=== PATIENT | female | born 1980 | race Caucasian/White ===

== ENCOUNTER 2019-04-19 13:15 | Emergency (ER) | payer MEDICAID ==
[~2019-04-19] VITALS: Ht 160 cm; Wt 64.4 kg
[2019-04-19 13:27] VITALS: BP 123/69
--- NOTE | 2019-04-19 13:31 | NUR ---
PT TO ER LOBBY WITH STEADY GAIT. VS [facility], PT ALERT AND AWAKE
--- NOTE | 2019-04-19 13:58 | NUR ---
PT AMBULATED TO ER BED 5
--- NOTE | 2019-04-19 14:12 | NUR ---
38 YEAR OLD FEMALE COMPLAINS OF ABDOMINAL PAIN (01/16) THAT RADIATES TO THE LOWER BACK (PAIN /) SINCE YESTERDAY. DENIES N/V/D. DENIES DYSURIA. BOWEL SOUNDS ACTIVE IN ALL 4 QUADRANTS.RUQ PAIN UPON PALPATION. PATIENT HAD BOWEL MOVEMENT LAST NIGHT. PATIENT ALERT AND ORIENTED. BED IN LOWEST POSITION, LOCKED, SIDE RAIL UPX1.
[2019-04-19] MEDS ORDERED: MORPHINE SULFATE 4 MG/ML SYR IVP ONE (14:30)
[2019-04-19] MEDS ORDERED: NACL 0.9% 1,000 ML IV ONE (14:30)
[2019-04-19] MEDS ORDERED: ONDANSETRON 4 MG/2 ML VIAL IVP ONE (14:30)
--- NOTE | 2019-04-19 15:18 | NUR ---
Ultrasound at bedside.
[2019-04-19 15:40] LABS: BASOPHILS % (AUTO) 0.4 % (0.0-2.0); EOSINOPHILS % (AUTO) 0.4 % (0.0-4.0); HEMATOCRIT 43.3 % (36-48); HEMOGLOBIN 14.6 g/dL (12.0-16.0); LYMPHOCYTES # (AUTO) 1.4 K/uL (2.5-16.5); LYMPHOCYTES % (AUTO) 17.1 % (20.5-51.1); MEAN CORPUSCULAR HEMOGLOBIN 32 pg (27-31); MEAN CORPUSCULAR HGB CONC 34 g/dL (33-37); MEAN CORPUSCULAR VOLUME 95.9 fL (80-94); MONOCYTES # (AUTO) 0.4 K/uL (0.8-1.0); MONOCYTES % (AUTO) 4.3 % (1.7-9.3); NEUTROPHILS # (AUTO) 6.5 K/uL (1.8-7.7); NEUTROPHILS % (AUTO) 77.8 % (42.2-75.2); PLATELET COUNT (AUTO) 238 K/uL (140-450); RED BLOOD CELL COUNT(AUTO) 4.52 MIL/uL (4.20-5.40); RED CELL DISTRIBUTION WIDTH 12.7 % (11.6-13.7); WHITE BLOOD COUNT (AUTO) 8.3 K/uL (4.8-10.8)
[2019-04-19 15:45] LABS: APPEARANCE,URINE CLEAR (CLEAR); BILIRUBIN,URINE NEGATIVE (NEGATIVE); BLOOD, URINE 1+ (NEGATIVE); COLOR,URINE YELLOW (YELLOW); LEUKOCYTE ESTERASE ,URINE NEGATIVE (NEGATIVE); NITRITE, URINE NEGATIVE (NEGATIVE); UGLUCOSE NEGATIVE (NEGATIVE)
[2019-04-19 15:51] LABS: CARBON DIOXIDE 28.7 mmol/L (21-32); CREATININE 0.7 mg/dL (0.6-1.3); POTASSIUM 3.7 mmol/L (3.5-5.1)
[2019-04-19 15:57] LABS: ALBUMIN 4.2 g/dL (3.4-5.0); TOTAL BILIRUBIN 0.4 mg/dL (0.0-1.0)
[2019-04-19 15:58] LABS: RBC,URINE 0-5 /HPF (0-5); TRICHOMONAS,URINE None Seen /HPF (None Seen); WBC,URINE NONE SEEN /HPF (0-5); YEAST,URINE None Seen /HPF (None Seen)
--- NOTE | 2019-04-19 16:43 | NUR ---
Patient taken to CT scan via wheelchair by tech.
--- NOTE | 2019-04-19 17:00 | NUR ---
Patient returned from CT scan. RN evaluating patient at bedside.
--- NOTE | 2019-04-19 19:15 | NUR ---
IV removed, catheter intact and site benign. Applied folded 4x4 gauze and tape to stop bleeding.
[2019-04-19 19:22] VITALS: BP 114/71
--- NOTE | 2019-04-19 19:22 | NUR ---
Patient discharged with v/s stable. Written and verbal after care instructions given and explained. Patient alert, oriented and verbalized understanding of instructions. Ambulatory with steady gait. All questions addressed prior to discharge. ID band removed. Patient advised to follow up with PMD. Rx of NORCO ZOFRAN given. Patient educated on indication of medication including possible reaction and side effects. Opportunity to ask questions provided and answered.
== END 2019-04-19 19:22 | disposition home or self-care (01) ==
LOC: MED 13:15
DX: K80.80 Other cholelithiasis without obstruction (principal)
CPT/HCPCS: 36415; 74176; 76705; 80053; 81001; 81025; 83690; 85025; 96374; 96375; 99284; J2270; J2405; J7030; Q0092